=== PATIENT | female | born 1945 | race Caucasian/White ===

== ENCOUNTER → 2020-02-12 09:14 | Outpatient (REF) | payer MEDICARE, SELFPAY | LOC: ANHLAB 09:14 | PROVIDERS: PCP Physician Assistant; Visit Provider Nurse Practitioner | DX: C44.212 Basal cell carcinoma of skin of right ear and external auricular canal (principal) | CPT/HCPCS: 88305; 88331 ==

== ENCOUNTER 2023-02-04 08:10 | Outpatient (CLI) | payer MEDICARE, SELFPAY ==
--- NOTE | ~2023-02-04 | XR_ITS ---
EXAMINATION: XR chest 2V DATE: 02/04/2023 08:27 INDICATION: Dyspnea. TECHNIQUE: Frontal and lateral views of the chest were obtained. COMPARISON: None. FINDINGS: There is mild scarring at the lung apices. There is blunting of left posterior costophrenic angle. No pneumonia or pneumothorax. The heart size is normal. IMPRESSION: 1. Blunting of left posterior costophrenic angle, consistent with scarring versus tiny pleural effusi on. Reviewed, dictated and finalized at location A. IMPRESSION: 1. Blunting of left posterior costophrenic angle, consistent with scarring vers us tiny pleural effusion.
== END 2023-02-04 08:11 ==
PROVIDERS: PCP Physician Assistant; Visit Provider Physician Assistant
DX: R06.09 Other forms of dyspnea (principal)
CPT/HCPCS: 71046

== ENCOUNTER → 2023-04-19 12:42 | Outpatient (CLI) | payer MEDICARE, SELFPAY ==
--- NOTE | ~2023-04-19 | CT_ITS ---
EXAMINATION: CT diagnostic chest w con DATE: 04/19/2023 13:17 INDICATION: standard chest x-ray abnormal TECHNIQUE: Computed tomography (CT) of the chest was performed without intravenous contrast. Addition al 3D reconstructions utilizing coronal maximum intensity projection (MIP) were performed. Automated exposure control and iterative reconstruction technique were employed. The dose-length product was 13 8.51 mGy-cm. COMPARISON: None FINDINGS: Biapical pleural-parenchymal scarring. No pneumonia, pulmonary edema, pleural effusion or pneumothora x. Minimal dependent atelectasis in the right lower lobe. Additional mild discoid atelectasis at the lingula. Small calcified nodule in the right lower lobe consistent with old granulomatous disease. Cl uster of a few <4 mm nodules with tree-in-bud pattern in the posterior segment of the right upper lob e consistent with endobronchial spread of disease likely infectious or inflammatory in etiology. Hear t size is normal. No pericardial effusion. Thoracic aorta is normal in caliber with no dissection. No pathologically enlarged thoracic lymphadenopathy. Bilateral breast implants. Parapelvic cysts at the left renal hilum. Moderate thoracic spondylosis. IMPRESSION: 1. Age-indeterminate small region of tree-in-bud pattern in the posterior segment right upper lobe mo st likely infectious or inflammatory in etiology. Reviewed, dictated and finalized at location A. IMPRESSION: 1. Age-indeterminate small region of tree-in-bud pattern in the posterior segme nt right upper lobe most likely infectious or inflammatory in etiology.
[2023-04-19 13:05] LABS: Estimated Glomerular Filt Rate > 60
== END ==
PROVIDERS: PCP Physician Assistant; Visit Provider Physician Assistant
DX: R93.89 Abnormal findings on diagnostic imaging of other specified body structures (principal)
CPT/HCPCS: 71260; Q9967

== ENCOUNTER 2024-03-06 11:17 | Outpatient (CLI) | payer MEDICARE, SELFPAY ==
--- NOTE | ~2024-03-06 | XR_ITS ---
Clinical Indication: Dyspnea PA and lateral views of the chest: Comparison: 02/04/2023 Findings: The lungs are clear, without evidence of focal consolidation or pleural effusion. Possible COPD. Cardiomediastinal silhouette is within normal limits. Bones and soft tissues are unremarkable. Impression: Clear lungs. Possible COPD. Reviewed, dictated and finalized at location . Impression: Clear lungs. Possible COPD.
--- NOTE | ~2024-03-06 | XR_ITS ---
Right Knee Technique: AP, lateral, and sunrise views were obtained. Clinical History: Pain Findings: No fracture or dislocation is seen. Osseous alignment is anatomic. There is minimal spurrin g at the patella and medial joint line. Soft tissues are unremarkable. No joint effusion is seen. Impression: Minimal degenerative change, as above. Reviewed, dictated and finalized at location M. Impression: Minimal degenerative change, as above.
== END 2024-03-06 11:18 ==
PROVIDERS: PCP Physician Assistant; Visit Provider Physician Assistant
DX: M17.11 Unilateral primary osteoarthritis, right knee (principal); R06.00 Dyspnea, unspecified
CPT/HCPCS: 71046; 73562

== ENCOUNTER 2024-03-29 13:37 | Outpatient (CLI) | payer MEDICARE, SELFPAY ==
--- NOTE | ~2024-03-29 | MR_ITS ---
EXAMINATION: MR knee RT wo con DATE: 03/29/2024 14:28 INDICATION: Right knee pain TECHNIQUE: Magnetic resonance imaging (MRI) of the right knee was performed without intravenous contr ast. Sequences included coronal PD-weighted FSE, coronal PD-weighted FS FSE, sagittal T2-weighted FS E, sagittal PD-weighted FS FSE and axial PD weighted fat saturated FSE. COMPARISON: None. FINDINGS: Medial compartment: Complex tear at the body of the medial meniscus with includes a near full-thickness radial tear plane as well as a longitudinal horizontal tear plane with subluxation of a portion of the inferior periph eral meniscus into the gutter along the medial rim of the medial tibial plateau. There is mild subart icular edema-like and cystlike change underlying small region of peripheral/near full-thickness chond ral ulceration along the medial margin of the medial tibial plateau.. Partial-thickness cartilage los s with subtle chondral surface regular date and with minimal subarticular edema-like signal change al [place] the anterior weightbearing medial femoral condyle. Cartilage loss becomes progressively less dave re at the central weightbearing medial femoral condyle without degenerative subchondral changes. Ther e is partial thickness chondral ulceration and deep fissuring with small central subchondral osteophy ander at the radial side of the posterior weightbearing medial femoral condyle. Lateral compartment: Lateral meniscus is normal. Additional small central subchondral osteophytes underlying a region of p artial-thickness chondral ulceration and fissuring at the anterior weightbearing lateral femoral cond yle. Mild partial-thickness cartilage loss with with minimal chondral surface irregularity but withou t degenerative subchondral changes at the central to medial aspect of the lateral tibial plateau exte nding onto the shoulder of the the intercondylar eminence. Patellofemoral compartment: Deep chondral fissuring without degenerative subchondral changes at the inferior aspect of the patell ar apical ridge and immediately adjacent medial and lateral patellar facets. Partial-thickness chondr al ulceration involving up to 50% of the cartilage thickness but without degenerative subchondral tyler nges at the inferior aspect of the trochlear groove. Additional mild partial-thickness cartilage loss with generally smooth chondral surface along the medial and lateral trochlea. Ligaments and tendons: Anterior and posterior cruciate ligaments are normal. The medial collateral ligament and fibular reina ateral ligament complex are normal. The extensor mechanism is normal. The visualized medial and later al hamstring tendons as well as the iliotibial band are normal. Fluid: Minimal right knee joint effusion. No loose osteochondral bodies identified. Osseous/other: Normal marrow signal. No fracture or pathologic marrow replacing process. IMPRESSION: 1. Complex medial meniscal tear. 2. 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 Reviewed, dictated and finalized at location A. IMPRESSION: 1. Complex medial meniscal tear. 2. 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
== END 2024-03-29 13:38 ==
LOC: GOSHIMG 13:38
PROVIDERS: PCP Nurse Practitioner Family; Visit Provider Nurse Practitioner Family
DX: S83.231A Complex tear of medial meniscus, current injury, right knee, initial encounter (principal); M17.11 Unilateral primary osteoarthritis, right knee; M94.261 Chondromalacia, right knee; X58.XXXA Exposure to other specified factors, initial encounter
CPT/HCPCS: 73721

== ENCOUNTER 2024-06-14 12:25 | Outpatient (CLI) | payer MEDICARE, SELFPAY ==
--- NOTE | ~2024-06-14 | MR_ITS ---
MRI of the lumbar spine Clinical History: Back pain Technique: Axial T2-weighted images, and sagittal T1-weighted, T2-weighted, and and T2 fat-sat images were acquired. Findings: There is no fracture in the lumbar spine. There is minimal grade 1 anterolisthesis of L3 ov er L4. No suspicious bone marrow signal abnormality seen. At L1-L2, there is no disc bulge or herniation. There is mild facet hypertrophy. No spinal canal sten osis or neural foraminal narrowing. At L2-L3, there is no disc bulge or herniation. There is moderate facet arthropathy. No central canal stenosis or neural foraminal narrowing. At L3-L4, there is diffuse disc bulge with annular fissure. There is severe facet arthropathy. There is resultant severe spinal canal stenosis/thecal sac compression. There is mild right neural foramina l narrowing. Left neural foramen preserved. At L4-L5, there is mild disc bulge with severe facet arthropathy. There is mild central canal stenosi s. Neural foramina are preserved. At L5-S1, there is mild disc bulge with severe facet arthropathy. No central canal stenosis. There is mild left neural foraminal narrowing. Right neural foramen preserved. Paravertebral soft tissues are unremarkable. Impression: Severe degenerative spondylosis at L3-L4, as detailed above. Mild degenerative changes in the remainder of the lumbar spine, as above. Minimal grade 1 anterolisthesis of L3 over L4. Reviewed, dictated and finalized at [facility]. Impression: Severe degenerative spondylosis at L3-L4, as detailed above. Mild degenerative changes in the remainder of the lumbar spine, as above. Minimal grade 1 anterolisthesis of L3 over L4.
== END 2024-06-14 12:26 | disposition home or self-care (01) ==
LOC: GOSHIMG 12:26
PROVIDERS: PCP Orthopaedic Surgery; Visit Provider Orthopaedic Surgery
DX: M47.816 Spondylosis without myelopathy or radiculopathy, lumbar region (principal); M25.561 Pain in right knee
CPT/HCPCS: 72148